=== PATIENT | male | born 1980 | race Caucasian/White ===

== ENCOUNTER 2018-10-12 15:17 | Inpatient (IN) | payer OTHER ==
[~2018-10-12] VITALS: Ht 177.8 cm; Wt 88.5 kg
[2018-10-12] MEDS ORDERED: ANUSOL-HC25 MG (15:32)
[2018-10-12] MEDS ORDERED: TRAMADOL HCL50 MG (15:32)
[2018-10-12] MEDS ORDERED: DECADRON0.5 MG (15:32)
[2018-10-14] MEDS ORDERED: PERCOCET 5-3251 EACH PO (09:13)
[2018-10-14] MEDS ORDERED: INTESTINEX680 M1 PO (09:13)
== END 2018-10-14 13:11 | disposition home or self-care (01) | DRG 349 ==
LOC: ER 15:17 → SEC-K 10-13 09:43 → SURG 10-13 09:43 → O/R 10-13 15:24 → SURG 10-13 17:19
PROVIDERS: ADMIT Surgery
PROC: 0HB9XZZ Excision of Perineum Skin, External Approach (ICD-10-PCS; 2018-10-13)
PROC: 3E0T3BZ Introduction of Anesthetic Agent into Peripheral Nerves and Plexi, Percutaneous Approach (ICD-10-PCS; 2018-10-13)
PROC: BW2GZZZ Computerized Tomography (CT Scan) of Pelvic Region (ICD-10-PCS; 2018-10-13)
PROC: 0D9Q0ZZ Drainage of Anus, Open Approach (ICD-10-PCS; principal; 2018-10-13 20:15)
DX: K61.0 Anal abscess (principal); K61.39 Other ischiorectal abscess; N50.82 Scrotal pain; D72.828 Other elevated white blood cell count

== ENCOUNTER 2018-12-04 05:42 | Day surgery (SDC) | payer OTHER ==
[~2018-12-04 05:42] MED LIST: ANUSOL-HC25 MG; DECADRON0.5 MG; INTESTINEX680 M1 PO; PERCOCET 5-3251 EACH PO; PRILOSEC10 MG; TRAMADOL HCL50 MG
[2018-12-04] MEDS ORDERED: COLACE100 MG PO (07:58)
[2018-12-04] MEDS ORDERED: PERCOCET 5-3251 EACH PO (07:58)
== END 2018-12-04 12:40 | disposition home or self-care (01) ==
LOC: CIR.AMB 05:42
DX: K60.3 Anal fistula (principal)

== ENCOUNTER 2019-09-13 09:33 | Day surgery (SDC) | payer OTHER ==
[~2019-09-13 09:33] MED LIST changes: +COLACE100 MG PO
== END 2019-09-13 14:30 | disposition home or self-care (01) ==
LOC: AMB-ENDOS 09:33 → ADM 14:15 → AMB-ENDOS 14:15
PROVIDERS: ATTEND Surgery
DX: K63.5 Polyp of colon (principal)